=== PATIENT | female | born 1940 | race Caucasian/White ===

== ENCOUNTER → 2017-01-21 | Outpatient (CLI) | payer MEDICARE, OTHER | LOC: HEART 5 08:28 | DX: I08.3 Combined rheumatic disorders of mitral, aortic and tricuspid valves (principal); I27.2 Other secondary pulmonary hypertension; I49.8 Other specified cardiac arrhythmias; I87.2 Venous insufficiency (chronic) (peripheral); M62.81 Muscle weakness (generalized); I10 Essential (primary) hypertension | CPT/HCPCS: 93306 ==

== ENCOUNTER → 2020-05-14 | Outpatient (CLI) | payer MEDICARE, OTHER ==
[~2020-05-14] MED LIST: ALEVE220 MG PO; AMIODARONE HCL200 MG PO; AMITIZA 24 MCG24 MCG PO; BENADRYL25 MG PO; BRYHALI100 GM TD; CALCIUM + VITA1 EACH PO; COMBIGAN EYE DRO5 ML EYEBOTH; ELIQUIS 2.5 MG2.5 MG PO; ELIQUIS 5 MG TAB5 MG PO; ELIQUIS5 MG PO; EYE DROPS; HARD NAILS2500 MCG PO; HYDROCHLOROTHIA25 MG PO; KEFLEX500 MG PO; LEVOTHYROXINE125 MCG PO; LISINOPRIL5 MG PO; LOTEMAX3.5 GM EYEBOTH; MIRALAX17 GM PO; NEURONTIN 400400 MG PO; NORCO 5-325 TA1 EACH PO; NORVASC 5 MG TAB5 MG PO; PERCOCET 10-321 EACH PO; SYNTHROID100 MCG PO; SYNTHROID112 MCG PO; SYNTHROID125 MCG PO; THERA TEARS1 EACH EYEBOTH; VITAMIN D-32000 UNIT PO
== END ==
LOC: WCC 08:30
DX: T81.31XS Disruption of external operation (surgical) wound, not elsewhere classified, sequela (principal); L98.495 Non-pressure chronic ulcer of skin of other sites with muscle involvement without evidence of necrosis; I12.0 Hypertensive chronic kidney disease with stage 5 chronic kidney disease or end stage renal disease; N18.6 End stage renal disease; E66.01 Morbid (severe) obesity due to excess calories; H26.9 Unspecified cataract; H40.9 Unspecified glaucoma; Z95.0 Presence of cardiac pacemaker; Z88.1 Allergy status to other antibiotic agents; Z91.013 Allergy to seafood; Z91.048 Other nonmedicinal substance allergy status; Z68.30 Body mass index [BMI] 30.0-30.9, adult; Z87.891 Personal history of nicotine dependence
CPT/HCPCS: G0463

== ENCOUNTER → 2020-05-22 | Outpatient (CLI) | payer MEDICARE, OTHER | LOC: WCC 10:00 | DX: T81.31XS Disruption of external operation (surgical) wound, not elsewhere classified, sequela (principal); L98.415 Non-pressure chronic ulcer of buttock with muscle involvement without evidence of necrosis; E66.01 Morbid (severe) obesity due to excess calories; I12.9 Hypertensive chronic kidney disease with stage 1 through stage 4 chronic kidney disease, or unspecified chronic kidney disease; N18.9 Chronic kidney disease, unspecified; L98.495 Non-pressure chronic ulcer of skin of other sites with muscle involvement without evidence of necrosis; R53.1 Weakness; Z68.30 Body mass index [BMI] 30.0-30.9, adult; Z88.2 Allergy status to sulfonamides; Z95.0 Presence of cardiac pacemaker ==

== ENCOUNTER → 2020-05-29 | Outpatient (CLI) | payer MEDICARE, OTHER | LOC: WCC 08:56 | PROC: 0JB90ZZ Excision of Buttock Subcutaneous Tissue and Fascia, Open Approach (ICD-10-PCS; principal; 2020-05-29) | DX: T81.31XS Disruption of external operation (surgical) wound, not elsewhere classified, sequela (principal); L98.495 Non-pressure chronic ulcer of skin of other sites with muscle involvement without evidence of necrosis; I10 Essential (primary) hypertension; E66.01 Morbid (severe) obesity due to excess calories; N18.9 Chronic kidney disease, unspecified; R53.1 Weakness; Z88.2 Allergy status to sulfonamides; Z91.013 Allergy to seafood; Z68.30 Body mass index [BMI] 30.0-30.9, adult ==

== ENCOUNTER → 2020-06-05 | Outpatient (CLI) | payer MEDICARE, OTHER | LOC: WCC 08:00 | PROC: 0JB90ZZ Excision of Buttock Subcutaneous Tissue and Fascia, Open Approach (ICD-10-PCS; principal; 2020-06-05) | DX: T81.31XA Disruption of external operation (surgical) wound, not elsewhere classified, initial encounter (principal); L98.413 Non-pressure chronic ulcer of buttock with necrosis of muscle; I96 Gangrene, not elsewhere classified; I12.0 Hypertensive chronic kidney disease with stage 5 chronic kidney disease or end stage renal disease; N18.6 End stage renal disease; H40.9 Unspecified glaucoma; I49.9 Cardiac arrhythmia, unspecified; E66.01 Morbid (severe) obesity due to excess calories; Z68.30 Body mass index [BMI] 30.0-30.9, adult; Z88.2 Allergy status to sulfonamides; Z88.6 Allergy status to analgesic agent; Z88.8 Allergy status to other drugs, medicaments and biological substances; Z91.09 Other allergy status, other than to drugs and biological substances; Z91.013 Allergy to seafood; Z91.040 Latex allergy status; Y83.8 Other surgical procedures as the cause of abnormal reaction of the patient, or of later complication, without mention of misadventure at the time of the procedure ==

== ENCOUNTER → 2020-06-10 | Outpatient (CLI) | payer MEDICARE, OTHER | LOC: EXRD 06-06 14:00 | DX: R60.0 Localized edema (principal) | CPT/HCPCS: 93931 ==

== ENCOUNTER → 2020-06-13 | Outpatient (CLI) | payer MEDICARE, OTHER | LOC: WCC 10:45 | PROC: 0KBN0ZZ Excision of Right Hip Muscle, Open Approach (ICD-10-PCS; principal; 2020-06-13) | DX: T81.31XA Disruption of external operation (surgical) wound, not elsewhere classified, initial encounter (principal); I96 Gangrene, not elsewhere classified; L98.413 Non-pressure chronic ulcer of buttock with necrosis of muscle; I12.0 Hypertensive chronic kidney disease with stage 5 chronic kidney disease or end stage renal disease; N18.6 End stage renal disease; H40.9 Unspecified glaucoma; I49.9 Cardiac arrhythmia, unspecified; E66.01 Morbid (severe) obesity due to excess calories; Z68.30 Body mass index [BMI] 30.0-30.9, adult; Z88.2 Allergy status to sulfonamides; Z88.6 Allergy status to analgesic agent; Z91.040 Latex allergy status; Z91.013 Allergy to seafood; Z91.02 Food additives allergy status; Z91.09 Other allergy status, other than to drugs and biological substances; Y83.8 Other surgical procedures as the cause of abnormal reaction of the patient, or of later complication, without mention of misadventure at the time of the procedure ==

== ENCOUNTER → 2020-06-18 | Outpatient (CLI) | payer MEDICARE, OTHER ==
[2020-06-18 12:50] LABS: HEMOGLOBIN 9.5 gm/dl (12.3-15.3); RED BLOOD COUNT 3.42 M/UL (4.00-5.10); WHITE BLOOD COUNT 8.9 K/UL (4.5-11.0)
== END ==
LOC: OPSV 10:56
PROVIDERS: Internal Medicine Infectious Disease
DX: N30.00 Acute cystitis without hematuria (principal); T81.49XA Infection following a procedure, other surgical site, initial encounter; B95.2 Enterococcus as the cause of diseases classified elsewhere; Z96.0 Presence of urogenital implants
CPT/HCPCS: 36415; 80053; 85025; 86140

== ENCOUNTER → 2020-06-27 | Outpatient (CLI) | payer MEDICARE, OTHER | LOC: WCC 10:30 | PROC: 0JBL0ZZ Excision of Right Upper Leg Subcutaneous Tissue and Fascia, Open Approach (ICD-10-PCS; principal; 2020-06-27) | DX: T81.31XA Disruption of external operation (surgical) wound, not elsewhere classified, initial encounter (principal); I96 Gangrene, not elsewhere classified; L97.113 Non-pressure chronic ulcer of right thigh with necrosis of muscle; I12.0 Hypertensive chronic kidney disease with stage 5 chronic kidney disease or end stage renal disease; N18.6 End stage renal disease; H26.9 Unspecified cataract; H40.9 Unspecified glaucoma; I49.9 Cardiac arrhythmia, unspecified; E66.01 Morbid (severe) obesity due to excess calories; Z68.30 Body mass index [BMI] 30.0-30.9, adult; Z95.0 Presence of cardiac pacemaker; Z96.641 Presence of right artificial hip joint; Z88.2 Allergy status to sulfonamides; Z91.013 Allergy to seafood; Z91.09 Other allergy status, other than to drugs and biological substances; Y83.1 Surgical operation with implant of artificial internal device as the cause of abnormal reaction of the patient, or of later complication, without mention of misadventure at the time of the procedure | CPT/HCPCS: 81001; 87077; 87086; 87186 ==

== ENCOUNTER → 2020-07-11 | Outpatient (CLI) | payer MEDICARE, OTHER | LOC: WCC 10:30 | PROC: 0KBN0ZZ Excision of Right Hip Muscle, Open Approach (ICD-10-PCS; principal; 2020-07-11) | DX: T81.31XA Disruption of external operation (surgical) wound, not elsewhere classified, initial encounter (principal); I96 Gangrene, not elsewhere classified; L98.493 Non-pressure chronic ulcer of skin of other sites with necrosis of muscle; E66.01 Morbid (severe) obesity due to excess calories; I12.0 Hypertensive chronic kidney disease with stage 5 chronic kidney disease or end stage renal disease; N18.6 End stage renal disease; R53.1 Weakness; Z68.30 Body mass index [BMI] 30.0-30.9, adult; Z88.2 Allergy status to sulfonamides; Z91.013 Allergy to seafood; Z91.048 Other nonmedicinal substance allergy status; Y83.8 Other surgical procedures as the cause of abnormal reaction of the patient, or of later complication, without mention of misadventure at the time of the procedure ==

== ENCOUNTER → 2020-07-17 | Outpatient (CLI) | payer MEDICARE, OTHER | LOC: HEART 5 09:15 | DX: Z51.81 Encounter for therapeutic drug level monitoring (principal); Z79.899 Other long term (current) drug therapy | CPT/HCPCS: 94060; 94729 ==

== ENCOUNTER → 2020-07-25 | Outpatient (CLI) | payer MEDICARE, OTHER | LOC: WCC 07:23 | PROC: 0JB90ZZ Excision of Buttock Subcutaneous Tissue and Fascia, Open Approach (ICD-10-PCS; principal; 2020-07-25) | DX: T81.31XA Disruption of external operation (surgical) wound, not elsewhere classified, initial encounter (principal); I96 Gangrene, not elsewhere classified; L98.493 Non-pressure chronic ulcer of skin of other sites with necrosis of muscle; E66.01 Morbid (severe) obesity due to excess calories; I12.0 Hypertensive chronic kidney disease with stage 5 chronic kidney disease or end stage renal disease; N18.6 End stage renal disease; Z68.30 Body mass index [BMI] 30.0-30.9, adult; Z88.2 Allergy status to sulfonamides; Z91.013 Allergy to seafood; Z91.048 Other nonmedicinal substance allergy status; Y83.8 Other surgical procedures as the cause of abnormal reaction of the patient, or of later complication, without mention of misadventure at the time of the procedure ==

== ENCOUNTER → 2020-08-14 | Outpatient (CLI) | payer MEDICARE, OTHER | LOC: WCC 08:30 | DX: T81.31XD Disruption of external operation (surgical) wound, not elsewhere classified, subsequent encounter (principal); L98.495 Non-pressure chronic ulcer of skin of other sites with muscle involvement without evidence of necrosis; I12.9 Hypertensive chronic kidney disease with stage 1 through stage 4 chronic kidney disease, or unspecified chronic kidney disease; N18.9 Chronic kidney disease, unspecified; E66.01 Morbid (severe) obesity due to excess calories; Z68.30 Body mass index [BMI] 30.0-30.9, adult; Z95.0 Presence of cardiac pacemaker; Z88.2 Allergy status to sulfonamides; Z91.013 Allergy to seafood ==

== ENCOUNTER → 2020-08-28 | Outpatient (CLI) | payer MEDICARE, OTHER | LOC: WCC 08:26 | DX: T81.31XS Disruption of external operation (surgical) wound, not elsewhere classified, sequela (principal); L98.495 Non-pressure chronic ulcer of skin of other sites with muscle involvement without evidence of necrosis; I10 Essential (primary) hypertension; E66.01 Morbid (severe) obesity due to excess calories ==

== ENCOUNTER → 2020-09-11 | Outpatient (CLI) | payer MEDICARE, OTHER | LOC: WCC 08:29 | DX: T81.31XD Disruption of external operation (surgical) wound, not elsewhere classified, subsequent encounter (principal); L98.495 Non-pressure chronic ulcer of skin of other sites with muscle involvement without evidence of necrosis; I12.9 Hypertensive chronic kidney disease with stage 1 through stage 4 chronic kidney disease, or unspecified chronic kidney disease; N18.9 Chronic kidney disease, unspecified; R53.1 Weakness; E66.01 Morbid (severe) obesity due to excess calories; Z68.30 Body mass index [BMI] 30.0-30.9, adult; Z88.2 Allergy status to sulfonamides; Z91.013 Allergy to seafood ==

== ENCOUNTER → 2020-09-25 | Outpatient (CLI) | payer MEDICARE, OTHER | LOC: WCC 08:30 | DX: T81.31XS Disruption of external operation (surgical) wound, not elsewhere classified, sequela (principal); L98.495 Non-pressure chronic ulcer of skin of other sites with muscle involvement without evidence of necrosis; I12.9 Hypertensive chronic kidney disease with stage 1 through stage 4 chronic kidney disease, or unspecified chronic kidney disease; N18.9 Chronic kidney disease, unspecified; E66.01 Morbid (severe) obesity due to excess calories ==

== ENCOUNTER → 2020-10-09 | Outpatient (CLI) | payer MEDICARE, OTHER | LOC: WCC 08:30 | PROC: 0JB90ZZ Excision of Buttock Subcutaneous Tissue and Fascia, Open Approach (ICD-10-PCS; principal; 2020-10-09) | DX: T81.31XA Disruption of external operation (surgical) wound, not elsewhere classified, initial encounter (principal); I96 Gangrene, not elsewhere classified; L98.419 Non-pressure chronic ulcer of buttock with unspecified severity; I12.0 Hypertensive chronic kidney disease with stage 5 chronic kidney disease or end stage renal disease; N18.6 End stage renal disease; E66.01 Morbid (severe) obesity due to excess calories; Z68.30 Body mass index [BMI] 30.0-30.9, adult; Z95.0 Presence of cardiac pacemaker; Z79.01 Long term (current) use of anticoagulants; Z79.899 Other long term (current) drug therapy; Z88.2 Allergy status to sulfonamides; Z91.013 Allergy to seafood; Z91.048 Other nonmedicinal substance allergy status; Y83.8 Other surgical procedures as the cause of abnormal reaction of the patient, or of later complication, without mention of misadventure at the time of the procedure ==

== ENCOUNTER → 2020-10-10 | Outpatient (CLI) | payer MEDICARE, OTHER | LOC: KOH-I 16:20 | DX: R55 Syncope and collapse (principal); E66.01 Morbid (severe) obesity due to excess calories; G56.01 Carpal tunnel syndrome, right upper limb; I73.9 Peripheral vascular disease, unspecified; M15.0 Primary generalized (osteo)arthritis; D64.9 Anemia, unspecified; E03.9 Hypothyroidism, unspecified; E78.5 Hyperlipidemia, unspecified; F41.9 Anxiety disorder, unspecified; G90.09 Other idiopathic peripheral autonomic neuropathy; H40.9 Unspecified glaucoma; I10 Essential (primary) hypertension; I48.0 Paroxysmal atrial fibrillation; M06.9 Rheumatoid arthritis, unspecified; M81.0 Age-related osteoporosis without current pathological fracture; Z86.16 Personal history of COVID-19; Z87.440 Personal history of urinary (tract) infections | CPT/HCPCS: 70450 ==

== ENCOUNTER → 2020-10-30 | Outpatient (CLI) | payer MEDICARE, OTHER | LOC: WCC 08:30 | DX: T81.31XS Disruption of external operation (surgical) wound, not elsewhere classified, sequela (principal); L98.495 Non-pressure chronic ulcer of skin of other sites with muscle involvement without evidence of necrosis; I12.9 Hypertensive chronic kidney disease with stage 1 through stage 4 chronic kidney disease, or unspecified chronic kidney disease; N18.9 Chronic kidney disease, unspecified; E66.01 Morbid (severe) obesity due to excess calories; R53.1 Weakness; Z79.899 Other long term (current) drug therapy; Z68.30 Body mass index [BMI] 30.0-30.9, adult; Z95.0 Presence of cardiac pacemaker ==

== ENCOUNTER → 2020-11-17 | Outpatient (CLI) | payer MEDICARE, OTHER | LOC: WCC 08:30 | DX: T81.31XA Disruption of external operation (surgical) wound, not elsewhere classified, initial encounter (principal); L98.495 Non-pressure chronic ulcer of skin of other sites with muscle involvement without evidence of necrosis; I12.9 Hypertensive chronic kidney disease with stage 1 through stage 4 chronic kidney disease, or unspecified chronic kidney disease; N18.9 Chronic kidney disease, unspecified; E66.01 Morbid (severe) obesity due to excess calories; R53.1 Weakness; Z68.30 Body mass index [BMI] 30.0-30.9, adult; Z88.2 Allergy status to sulfonamides; Z91.013 Allergy to seafood; Z91.048 Other nonmedicinal substance allergy status; Z79.01 Long term (current) use of anticoagulants; Z79.899 Other long term (current) drug therapy ==

== ENCOUNTER → 2020-12-01 | Outpatient (CLI) | payer MEDICARE, OTHER | LOC: WCC 07:28 | DX: T81.31XA Disruption of external operation (surgical) wound, not elsewhere classified, initial encounter (principal); L98.495 Non-pressure chronic ulcer of skin of other sites with muscle involvement without evidence of necrosis; E66.01 Morbid (severe) obesity due to excess calories; I12.9 Hypertensive chronic kidney disease with stage 1 through stage 4 chronic kidney disease, or unspecified chronic kidney disease; N18.9 Chronic kidney disease, unspecified; Z95.0 Presence of cardiac pacemaker; R53.1 Weakness; Z88.2 Allergy status to sulfonamides; Z68.30 Body mass index [BMI] 30.0-30.9, adult; Z79.899 Other long term (current) drug therapy; Z79.01 Long term (current) use of anticoagulants | CPT/HCPCS: 97597; 97598 ==

== ENCOUNTER → 2020-12-15 | Outpatient (CLI) | payer MEDICARE, OTHER | LOC: WCC 09:30 | DX: T81.31XS Disruption of external operation (surgical) wound, not elsewhere classified, sequela (principal); L98.495 Non-pressure chronic ulcer of skin of other sites with muscle involvement without evidence of necrosis; E66.01 Morbid (severe) obesity due to excess calories; I12.9 Hypertensive chronic kidney disease with stage 1 through stage 4 chronic kidney disease, or unspecified chronic kidney disease; N18.9 Chronic kidney disease, unspecified | CPT/HCPCS: 97597 ==

== ENCOUNTER → 2020-12-29 | Outpatient (CLI) | payer MEDICARE, OTHER | LOC: WCC 08:55 | DX: T81.31XA Disruption of external operation (surgical) wound, not elsewhere classified, initial encounter (principal); L98.495 Non-pressure chronic ulcer of skin of other sites with muscle involvement without evidence of necrosis; I12.9 Hypertensive chronic kidney disease with stage 1 through stage 4 chronic kidney disease, or unspecified chronic kidney disease; N18.9 Chronic kidney disease, unspecified; E66.01 Morbid (severe) obesity due to excess calories; R53.1 Weakness; Z95.0 Presence of cardiac pacemaker; Z68.30 Body mass index [BMI] 30.0-30.9, adult | CPT/HCPCS: 97597 ==

== ENCOUNTER → 2021-01-13 | Outpatient (CLI) | payer MEDICARE, OTHER | LOC: WCC 08:30 | DX: T81.31XS Disruption of external operation (surgical) wound, not elsewhere classified, sequela (principal); L98.495 Non-pressure chronic ulcer of skin of other sites with muscle involvement without evidence of necrosis; I10 Essential (primary) hypertension; E66.01 Morbid (severe) obesity due to excess calories; N18.9 Chronic kidney disease, unspecified; R53.1 Weakness | CPT/HCPCS: G0463 ==

== ENCOUNTER 2021-04-27 18:43 | Inpatient (IN) | payer MEDICARE, OTHER ==
[~2021-04-27 18:43] MED LIST changes: -CALCIUM + VITA1 EACH PO; -NEURONTIN 400400 MG PO; -SYNTHROID125 MCG PO; -THERA TEARS1 EACH EYEBOTH
[2021-04-27 23:02] LABS: HEMOGLOBIN 9.7 gm/dl (12.3-15.3); RED BLOOD COUNT 3.57 M/UL (4.00-5.10); WHITE BLOOD COUNT 9.1 K/UL (4.5-11.0)
[2021-04-27 23:27] LABS: BUN/CREATININE RATIO 19 (0-10)
[2021-04-28] MEDS ORDERED: NEURONTIN300 MG PO (01:48)
[2021-04-28] MEDS ORDERED: CALCIUM + VITA1 EACH PO (01:52)
[2021-04-28 03:49] LABS: HEMOGLOBIN 8.8 gm/dl (12.3-15.3); RED BLOOD COUNT 3.25 M/UL (4.00-5.10); WHITE BLOOD COUNT 8.7 K/UL (4.5-11.0)
[2021-04-28] MEDS ORDERED: ARTIFICIAL TEAR15 M6 EYEBOTH (07:53)
[2021-04-28] MEDS ORDERED: SYNTHROID125 MCG PO (12:54)
[2021-04-28] MEDS ORDERED: GABAPENTIN300 MG PO (14:06)
[2021-04-28] MEDS ORDERED: LEXAPRO10 MG PO (14:07)
[2021-04-28] MEDS ORDERED: ZINC OXIDE60 GM TOP (14:09)
[2021-04-28] MEDS ORDERED: I-VITE TABLET1 EACH PO (14:10)
[2021-04-28] MEDS ORDERED: BENZONATATE200 MG PO (14:11)
[2021-04-28] MEDS ORDERED: TYLENOL EXTRA500 MG PO (14:11)
[2021-04-28] MEDS ORDERED: LACTULOSE10 GM/15 M PO (14:11)
[2021-04-28] MEDS ORDERED: ACIDOPHILUS1 EACH PO (14:12)
== END 2021-04-28 15:03 | DRG 566 ==
LOC: ER1 18:43 → CDU 22:28 → MED SURG 4 04-28 13:50
PROVIDERS: Emergency Medicine; Physician Assistant; ADMIT Internal Medicine
PROC: 0S9D3ZZ Drainage of Left Knee Joint, Percutaneous Approach (ICD-10-PCS; principal; 2021-04-28)
DX: M25.462 Effusion, left knee (principal); Z20.822 Contact with and (suspected) exposure to COVID-19; I48.0 Paroxysmal atrial fibrillation; I10 Essential (primary) hypertension; E03.9 Hypothyroidism, unspecified; I73.9 Peripheral vascular disease, unspecified; H40.9 Unspecified glaucoma; Z96.652 Presence of left artificial knee joint; Z96.698 Presence of other orthopedic joint implants; E55.9 Vitamin D deficiency, unspecified; I49.5 Sick sinus syndrome; W01.0XXA Fall on same level from slipping, tripping and stumbling without subsequent striking against object, initial encounter; Z96.641 Presence of right artificial hip joint; Z79.01 Long term (current) use of anticoagulants; Z87.440 Personal history of urinary (tract) infections; Z95.0 Presence of cardiac pacemaker; Z90.49 Acquired absence of other specified parts of digestive tract; Z87.891 Personal history of nicotine dependence; Z72.89 Other problems related to lifestyle; Z82.3 Family history of stroke; Z82.49 Family history of ischemic heart disease and other diseases of the circulatory system; Z83.3 Family history of diabetes mellitus; Z88.2 Allergy status to sulfonamides; Z91.040 Latex allergy status
CPT/HCPCS: 71045; 73562; 73564; 73590; 73610; 73630; 80048; 80053; 81001; 82550; 82553; 83874; 84484; 85025; 85027; 85610; 85652; 85730; 86140; 86850; 86900; 86901; 87077; 87086; 87186; 93005; 99285; U0002

== ENCOUNTER 2021-08-08 09:40 | Inpatient (IN) | payer MEDICARE, OTHER ==
[~2021-08-08] VITALS: Ht 172.7 cm; Wt 94.8 kg
[~2021-08-08 09:40] MED LIST changes: +ACIDOPHILUS1 EACH PO; +ARTIFICIAL TEAR15 M6 EYEBOTH; +BENZONATATE200 MG PO; +CALCIUM + VITA1 EACH PO; +GABAPENTIN300 MG PO; +I-VITE TABLET1 EACH PO; +LACTULOSE10 GM/15 M PO; +LEXAPRO10 MG PO; +MULTIPLE VITAM1 EACH PO; +NEURONTIN300 MG PO; +SYNTHROID125 MCG PO; +ZINC OXIDE60 GM TOP
[2021-08-08 10:40] LABS: HEMOGLOBIN 11.1 gm/dl (12.3-15.3); WHITE BLOOD COUNT 7.5 K/UL (4.5-11.0)
[2021-08-08 10:42] LABS: RED BLOOD COUNT 4.22 M/UL (4.00-5.10)
[2021-08-08 11:05] LABS: BUN/CREATININE RATIO 21 (0-10)
[2021-08-08] MEDS ORDERED: ACETAMINOPHEN650 M2 PO (14:11)
[2021-08-08] MEDS ORDERED: CALCIUM CIT 311 EAC1 PO (14:27)
[2021-08-08] MEDS ORDERED: GABAPENTIN300 MG PO (14:30)
[2021-08-08] MEDS ORDERED: LORATADINE10 MG PO ×2 (14:35→14:42)
[2021-08-08] MEDS ORDERED: PROBIOTIC1 EACH PO (14:36)
[2021-08-08] MEDS ORDERED: MIRALAX 119 GR119 GM PO (14:36)
[2021-08-08] MEDS ORDERED: CEFDINIR300 MG PO (14:38)
[2021-08-08] MEDS ORDERED: ELIQUIS2.5 MG PO (14:39)
[2021-08-08] MEDS ORDERED: LACTULOSE10 GM/15 M PO (14:42)
[2021-08-08] MEDS ORDERED: ZINC OXIDE2500 GM TOP (14:43)
[2021-08-08] MEDS ORDERED: ACETAMINOPHEN500 MG PO (14:45)
[2021-08-09 01:42] LABS: HEMOGLOBIN 10.8 gm/dl (12.3-15.3); RED BLOOD COUNT 3.86 M/UL (4.00-5.10)
[2021-08-09 01:46] LABS: WHITE BLOOD COUNT 3.8 K/UL (4.5-11.0)
[2021-08-09 01:56] LABS: BUN/CREATININE RATIO 18 (0-10)
[2021-08-10 05:48] LABS: HEMOGLOBIN 9.8 gm/dl (12.3-15.3); RED BLOOD COUNT 3.78 M/UL (4.00-5.10); WHITE BLOOD COUNT 3.7 K/UL (4.5-11.0)
[2021-08-11 07:03] LABS: HEMOGLOBIN 10.6 gm/dl (12.3-15.3); RED BLOOD COUNT 4.08 M/UL (4.00-5.10); WHITE BLOOD COUNT 3.6 K/UL (4.5-11.0)
[2021-08-11] MEDS ORDERED: TAMIFLU 30 MG CAP PO (09:03)
--- NOTE | 2021-08-11 16:44 | NUR ---
STAFFING AND SCHEDULING COORDINATOR WAS NOT TAKEN OFF OF PATIENT AND THE AMBULANCE SERVICES LEFT. NURSE CALLED AMBULANCE SERVICE TO RETREIEVE THE REHABILITATION MANAGER AND RETURN IT. THE AMBULANCE SERVICE SAID THEY WILL RETRIEVE IT AND RETURN IT ON THEIR NEXT ROUND TO THE HOSPITAL. TELEMETRY NOTIFIED OF UPDATE.
== END 2021-08-11 16:25 | DRG 193 ==
LOC: ER1 09:40 → CDU 12:15 → MED SURG 4 13:16
PROVIDERS: Nurse Practitioner; Physician Assistant Medical; ADMIT Internal Medicine Infectious Disease
DX: J10.08 Influenza due to other identified influenza virus with other specified pneumonia (principal); J96.01 Acute respiratory failure with hypoxia; I48.0 Paroxysmal atrial fibrillation; Z20.822 Contact with and (suspected) exposure to COVID-19; I10 Essential (primary) hypertension; I49.5 Sick sinus syndrome; E03.9 Hypothyroidism, unspecified; I73.9 Peripheral vascular disease, unspecified; M51.36 Other intervertebral disc degeneration, lumbar region; R74.01 Elevation of levels of liver transaminase levels; Z96.651 Presence of right artificial knee joint; Z96.631 Presence of right artificial wrist joint; R53.81 Other malaise; Z79.01 Long term (current) use of anticoagulants; Z95.0 Presence of cardiac pacemaker; Z90.49 Acquired absence of other specified parts of digestive tract; Z88.2 Allergy status to sulfonamides; Z88.8 Allergy status to other drugs, medicaments and biological substances; Z91.040 Latex allergy status; Z91.013 Allergy to seafood; Z87.891 Personal history of nicotine dependence; Z83.3 Family history of diabetes mellitus; Z82.3 Family history of stroke; Z82.49 Family history of ischemic heart disease and other diseases of the circulatory system
CPT/HCPCS: 0240U; 36415; 36600; 71045; 80048; 80053; 80076; 81001; 82550; 82553; 82803; 83605; 83735; 83880; 84443; 84484; 85025; 85027; 85379; 87040; 87086; 93005; 94640; 94760; 97162; 97530; 99285; J1120; J2543

== ENCOUNTER 2021-10-28 20:40 | Inpatient (IN) | payer MEDICARE, OTHER ==
[~2021-10-28] VITALS: Ht 175.3 cm; Wt 102.1 kg
[~2021-10-28 20:40] MED LIST changes: +ACETAMINOPHEN500 MG PO; +ACETAMINOPHEN650 M2 PO; +CALCIUM CIT 311 EAC1 PO; +CEFDINIR300 MG PO; +ELIQUIS2.5 MG PO; +LORATADINE10 MG PO; +MIRALAX 119 GR119 GM PO; +PROBIOTIC1 EACH PO; +TAMIFLU 30 MG CAP PO; +ZINC OXIDE2500 GM TOP
[2021-10-28 21:17] LABS: RED BLOOD COUNT 3.7 M/UL (4.00-5.10); WHITE BLOOD COUNT 7.9 K/UL (4.5-11.0)
[2021-10-29 02:55] LABS: HEMOGLOBIN 8.9 gm/dl (12.3-15.3); RED BLOOD COUNT 3.4 M/UL (4.00-5.10); WHITE BLOOD COUNT 7.4 K/UL (4.5-11.0)
[2021-10-29] MEDS ORDERED: VOLTAREN ARTHRI20 GM TOP (11:25)
[2021-10-29] MEDS ORDERED: VITAMIN C500 M4 PO (11:25)
[2021-10-29] MEDS ORDERED: FERROUS SULFAT325 MG PO (11:26)
[2021-10-30 02:51] LABS: KPC-CARBAPENEM-RESISTANCE GENE Not Detected (Negative)
[2021-10-30 02:52] LABS: CANDIDA ALBICANS Not Detected (Negative); CANDIDA KRUSEI Not Detected (Negative); CANDIDA TROPICALIS Not Detected (Negative); ESCHERICHIA COLI Not Detected (Negative); HAEMOPHILUS INFLUENZAE Not Detected (Negative); KLEBSIELLA OXYTOCA Not Detected (Negative); KLEBSIELLA PNEUMONIAE Not Detected (Negative); PROTEUS Not Detected (Negative); PSEUDOMONAS AERUGINOSA Not Detected (Negative); SERRATIA MARCESANS Not Detected (Negative); STAPHYLOCOCCUS AUREUS Not Detected (Negative); STREP AGALACTIAE (GROUP B) Not Detected (Negative); STREP PYOGENES (GROUP A) Not Detected (Negative); STREPTOCOCCUS Not Detected (Negative); vanA/B (VANCOMYCIN RESIST GENE Not Detected (Negative)
[2021-10-30 04:00] LABS: HEMOGLOBIN 9.2 gm/dl (12.3-15.3); RED BLOOD COUNT 3.48 M/UL (4.00-5.10); WHITE BLOOD COUNT 4.2 K/UL (4.5-11.0)
[2021-10-30 04:07] LABS: STAPHYLOCOCCUS DETECTED (Negative)
[2021-10-30] MEDS ORDERED: LEVOFLOXACIN500 MG PO (09:19)
[2021-10-30] MEDS ORDERED: GABAPENTIN300 MG PO (09:25)
[2021-10-30] MEDS ORDERED: DOXYCYCLINE HY100 MG PO (09:33)
[2021-10-30] MEDS ORDERED: OMNICEF 300 MG300 MG PO (09:33)
--- NOTE | 2021-10-30 14:25 | NUR ---
REPORT CALLED TO [facility]ILL[facility] AT [facility]
== END 2021-10-30 16:28 | DRG 871 ==
LOC: ER1 20:40 → M/S 10-29 00:50 → CDU 10-29 00:50 → M/S 10-29 01:54
PROVIDERS: Family Medicine; Internal Medicine; ADMIT Internal Medicine
PROC: 3E03329 Introduction of Other Anti-infective into Peripheral Vein, Percutaneous Approach (ICD-10-PCS; principal; 2021-10-29)
PROC: B24BZZZ Ultrasonography of Heart with Aorta (ICD-10-PCS; 2021-10-29)
DX: A41.51 Sepsis due to Escherichia coli [E. coli] (principal); J96.01 Acute respiratory failure with hypoxia; N39.0 Urinary tract infection, site not specified; I48.0 Paroxysmal atrial fibrillation; I49.5 Sick sinus syndrome; E03.9 Hypothyroidism, unspecified; E66.9 Obesity, unspecified; Z96.659 Presence of unspecified artificial knee joint; I11.0 Hypertensive heart disease with heart failure; I50.9 Heart failure, unspecified; Z20.822 Contact with and (suspected) exposure to COVID-19; I73.9 Peripheral vascular disease, unspecified; E55.9 Vitamin D deficiency, unspecified; M51.36 Other intervertebral disc degeneration, lumbar region; Z95.0 Presence of cardiac pacemaker; Z68.30 Body mass index [BMI] 30.0-30.9, adult; Z90.89 Acquired absence of other organs; Z79.01 Long term (current) use of anticoagulants; Z90.49 Acquired absence of other specified parts of digestive tract; Z83.3 Family history of diabetes mellitus; Z82.49 Family history of ischemic heart disease and other diseases of the circulatory system; Z82.3 Family history of stroke; Z98.890 Other specified postprocedural states; Z79.899 Other long term (current) drug therapy; Z68.33 Body mass index [BMI] 33.0-33.9, adult
CPT/HCPCS: ECHO; 0240U; 36415; 51702; 71045; 71250; 80048; 80053; 80202; 81001; 82550; 83036; 83605; 83735; 83880; 84100; 84439; 84443; 84550; 85025; 85027; 86140; 87040; 87070; 87077; 87086; 87150; 87186; 87205; 93005; 93306; 93970; 94640; 94664; 94760; 96361; 96374; 97116; 97161; 99285; J1940; J2543; J3370; J7030; J7070